=== PATIENT | female | born 1945 | race Caucasian/White ===

== ENCOUNTER → 2024-04-26 11:06 | Outpatient (REF) | payer MEDICARE, OTHER, SELFPAY | LOC: HWRAD 11:06 | PROVIDERS: ATTENDING PHYSICIAN Nurse Practitioner | DX: Z12.31 Encounter for screening mammogram for malignant neoplasm of breast (principal); M81.0 Age-related osteoporosis without current pathological fracture | CPT/HCPCS: 77063; 77067 ==

== ENCOUNTER → 2024-11-13 14:19 | Outpatient (REF) | payer MEDICARE, OTHER, SELFPAY ==
--- NOTE | 2024-11-13 16:35 | CARDSERVLU ---
Echocardiogram with Lumason completed after protocol screening completed. Allergies verified.
Patent IV site: 22 g angio inserted in left hand - 1st attempt
IV site flushed with 0.9% NaCl pre and post administration.
Diluted bolus method utilized to enhance visualization of ventricular taylor.
Total volume given: 4 mL
Patient tolerated all procedures well without complications.
IV discontinued when study completed.
Bandage applied after pressure held.
== END ==
LOC: RCS 14:19
PROVIDERS: ATTENDING PHYSICIAN Physician Assistant; FAMILY PHYSICIAN Internal Medicine
DX: R42 Dizziness and giddiness (principal); I34.0 Nonrheumatic mitral (valve) insufficiency
CPT/HCPCS: 93306; Q9950

== ENCOUNTER → 2025-05-28 11:35 | Outpatient (REF) | payer MEDICARE, OTHER, SELFPAY ==
[2025-05-28 14:01] LABS: Blood Urea Nitrogen 17 mg/dl (7-17); Calcium 10.3 mg/dl (8.4-10.2); Carbon Dioxide 27 mmol/L (22-30); Chloride 100 mmol/L (98-107); Glucose 88 mg/dl (70-99); Potassium 4.5 mmol/L (3.5-5.1); Sodium 134 mmol/L (135-145); eGFR 56.95
== END ==
LOC: RAD 11:35
PROVIDERS: ATTENDING PHYSICIAN Internal Medicine
DX: R10.814 Left lower quadrant abdominal tenderness (principal)
CPT/HCPCS: 36415; 74177; 80048; Q9967

== ENCOUNTER → 2025-07-01 09:39 | Outpatient (REF) | payer MEDICARE, OTHER, SELFPAY | LOC: HWWDC 09:39 | PROVIDERS: ATTENDING PHYSICIAN Hospitalist | DX: Z12.31 Encounter for screening mammogram for malignant neoplasm of breast (principal) | CPT/HCPCS: 77063; 77067 ==